=== PATIENT | female | born 1950 | race Caucasian/White ===

== ENCOUNTER 2016-12-15 15:43 | Inpatient (IN) | payer OTHER ==
[~2016-12-15] VITALS: Ht 154.9 cm; Wt 76.2 kg
[~2016-12-15 15:43] MED LIST: AMLO5TAB4 PO; LISI40TA4 PO; METO-442 PO; TRIA1CAP53 PO
[2016-12-15 16:05] VITALS: BP 143/81; PULSE 108; RESP 16; TEMP 97.4; O2SAT 99
--- NOTE | 2016-12-15 16:10 | NUR ---
Pt report received from HEENA Cardenas. Pt called by Dr. Messina's office r/t abnormal labs and instructed to go to ER. Pt AAOx4, even and non-labored respirations, BBS clear. Pt denies c/o pain or discomfort. Family member at bedside.
--- NOTE | 2016-12-15 16:10 | NUR ---
Placed in room 4 . Placed on teletypesetter monitor, blood pressure machine and pulse oximeter. To gown for exam. Side rails up. Report given to Kishore NAIK.
--- NOTE | 2016-12-15 16:20 | NUR ---
Dr. Peña at bedside to assess pt.
--- NOTE | 2016-12-15 16:35 | NUR ---
# 20 gauge angiocath placed to RAC. Use of asceptic technique. Opsite placed over site. Blood return noted. Blood for lab drawn from site. Flushed with 10 cc of normal saline. No evidence of infiltration noted. Patient tolerated well.
[2016-12-15 16:49] LABS: CALCIUM 9.2 mg/dL (8.4-11.0); CREATININE 0.89 mg/dL (0.55-1.30); POTASSIUM 3.6 mmol/L (3.5-5.1)
[2016-12-15 16:53] LABS: ALBUMIN 3.4 g/dL (3.4-4.8); INR 1.1 (0.8-1.2); PROTHROMBIN TIME 11.6 SECS (9.5-12.5); TOTAL BILIRUBIN 0.3 mg/dL (0.0-1.0); TOTAL PROTEIN, SERUM 8.4 g/dL (6.4-8.3)
--- NOTE | 2016-12-15 17:15 | NUR ---
Dr. Peña at bedside to discuss POC.
--- NOTE | 2016-12-15 17:20 | NUR ---
Lab at bedside for blood redraw to confirm RBC count. Consent signed for transfusion.
[2016-12-15] MEDS ORDERED: NACL 0.9% 1,000 ML IV ONE (17:30)
[2016-12-15 17:34] LABS: MEAN CORPUSCULAR HEMOGLOBIN 15 pg (27-31); MEAN CORPUSCULAR HGB CONC 29 % (32-36); MEAN CORPUSCULAR VOLUME 51 fL (79.0-98.0); PLATELET COUNT (AUTO) 689 K/uL (130-430); RED BLOOD CELL COUNT(AUTO) 3.89 MIL/uL (4.2-6.2); RED CELL DISTRIBUTION WIDTH 25.2 % (9.0-15.0); WHITE BLOOD COUNT (AUTO) 10.4 K/uL (4.8-10.8)
[2016-12-15 17:35] LABS: HEMATOCRIT 19.9 % (36-48); HEMOGLOBIN 5.7 g/dL (12.0-16.0)
[2016-12-15 17:43] LABS: BAND % (MANUAL) 1 % (0-6); BASOPHILS % (MANUAL) 0 % (0-2); EOSINOPHILS % (MANUAL) 2 % (0-7); LYMPHOCYTES % (MANUAL) 17 % (20-46); MONOCYTES % (MANUAL) 7 % (0-11)
--- NOTE | 2016-12-15 18:30 | NUR ---
Pt denies c/o pain or discomfort, no needs verbalized at this time. Family at bedside.
--- NOTE | 2016-12-15 19:10 | NUR ---
Patient will be admitted to care of Dr. Guerrero. Admitted to Tele unit. Will go to room 103B. Belongings list completed. Summary report printed. Report given to HEENA Chung.
[2016-12-15] MEDS ORDERED: NACL 0.9% 1,000 ML IV SCH (19:15)
[2016-12-15] MEDS ORDERED: cloNIDine HCL 0.1 MG TABLET PO PRN (19:15)
--- NOTE | 2016-12-15 19:29 | NUR ---
ADMISSION NOTE Received patient from ER via [place], received report from AUGUSTA NAIK. Patient admitted with diagnosis oF ANEMIA. Patient oriented to hospital routine, call light, toileting and safety-patient verbalized understanding.
--- NOTE | 2016-12-15 19:30 | NUR ---
INITIAL ASSESSMENT PT. A/OX4, B/P IS ELEVATED 195/93, DENIES HEADACHE AT THIS TIME, NO DISTRESS NOTED, DENIES PAIN, UPDATED WITH PLAN OF CARE, ENCOURAGED PT. TO USE CALL LIGHT FOR ASSISTANCE, CALL LIGHT WITHIN REACH, WILL CONTINUE TO MONITOR.
[2016-12-15 20:15] LABS: BILIRUBIN,URINE NEGATIVE (NEGATIVE); BLOOD, URINE NEGATIVE (NEGATIVE); COLOR,URINE YELLOW (YELLOW); GLUCOSE,URINE NEGATIVE (NEGATIVE); KETONES,URINE NEGATIVE (NEGATIVE); LEUKOCYTE ESTERASE ,URINE TRACE (NEGATIVE); NITRITE, URINE POSITIVE (NEGATIVE); PH,URINE 6.5 (5.0-8.0); PROTEIN URINE NEGATIVE (NEGATIVE); UROBILINOGEN,URINE 0.2 (0.2-1.0)
[2016-12-15 20:25] LABS: CLARITY/URINE HAZY (CLEAR)
[2016-12-15 20:27] LABS: BACTERIA,URINE MANY /HPF (None Seen); RBC,URINE NONE SEEN /HPF (0-3)
[2016-12-15 20:28] LABS: MUCUS,URINE None Seen /LPF (None Seen)
--- NOTE | 2016-12-15 20:30 | NUR ---
Consultation Paged Reason for consultation: Anemia Was consult called: Yes Person who was notified: Tabitha Consulting Physician: Dr Lang; Dr Peguero is on-call for Dr Lang [employer] Specialty: GI [employer]
[2016-12-15 20:35] VITALS: BP 184/80; PULSE 105; RESP 16; TEMP 97.5; O2SAT 100
--- NOTE | 2016-12-15 20:39 | NUR ---
PAGED DR. COWAN PAGED DR. COWAN FOR DIET ORDER, RECEIVED DIET ORDER FOR CLEAR LIQUIDS, ORDER NOTED AND TO BE CARRIED OUT.
[2016-12-15] MEDS: NACL 0.9% 1,000 ML IV SCH (21:28)
[2016-12-15] MEDS: cloNIDine HCL 0.1 MG TABLET PO PRN (21:28)
--- NOTE | 2016-12-15 21:59 | NUR ---
BT INITIATION: Consent signed per patient agreeing to administration of blood. Blood has been type and crossmatched. Blood sent from blood bank. Information on unit of blood checked against patient wristband at bedside by two nurses. All information matches. Patient or responsible constitution party informed of potential complications associated with blood transfusion. Informed of possible transfusion reaction symptoms. Aware of need to notify nurse at once of itching, shortness of breath, flushing, feeling of impending doom, or other symptoms not previously present. Vital signs taken within 5 minutes prior to initiation of transfusion. RN will remain with patient for first 15 minutes of transfusion at which time vital signs will be re-assessed.
--- NOTE | 2016-12-15 22:10 | NUR ---
TOLERATING BLOOD TRANSFUSION PT. TOLERATING BLOOD TRANSFUSION WELL, EDUCATION GIVEN REGARDING S/S OF TRANSFUSION REACTION, PT. VERBALIZED UNDERSTAND, PT. DENIES ANY S/S OF TRANSFUSION REACTION, DENIES ITCHINESS AND SHORTNESS OF BREATH, CALL LIGHT WITHIN REACH, WILL CONTINUE TO MONITOR.
[2016-12-15 23:41] VITALS: BP 164/78; PULSE 90; RESP 18; TEMP 99; O2SAT 98
--- NOTE | 2016-12-16 00:30 | NUR ---
1ST UNIT PRBC COMPLETE 1ST UNIT PRBC COMPLETE, NO S/S OF TRANSFUSION REACTION, VITAL SIGNS STABLE, NO DISTRESS NOTED, PT. TOLERATED WELL.
--- NOTE | 2016-12-16 00:52 | NUR ---
2ND PRBC STARTED Information on 2ND unit of blood checked against patient wristband at bedside by two nurses. All information matches. Patient or responsible libertarian informed of potential complications associated with blood transfusion. Informed of possible transfusion reaction symptoms. Aware of need to notify nurse at once of itching, shortness of breath, flushing, feeling of impending doom, or other symptoms not previously present. Vital signs taken within 5 minutes prior to initiation of transfusion. RN will remain with patient for first 15 minutes of transfusion at which time vital signs will be re-assessed.
--- NOTE | 2016-12-16 03:00 | NUR ---
AMBULATE TO THE BATHROOM ASSISTED PT. TO AMBULATE TO THE BATHROOM, PT. REPORTED HAVING A BOWEL MOVEMENT AND URINATED. ASSISTED SAFELY BACK TO BED WITH STEADY GAIT.
--- NOTE | 2016-12-16 03:50 | NUR ---
2ND UNIT OF PRBC COMPLETE 2ND UNIT PRBC COMPLETE, NO S/S OF TRANSFUSION REACTION, VITAL SIGNS STABLE, NO DISTRESS NOTED, PT. TOLERATED WELL.
[2016-12-16] MEDS: cloNIDine HCL 0.1 MG TABLET PO PRN ×2 (03:55→22:08)
[2016-12-16 04:26] VITALS: BP 163/82; PULSE 81; RESP 18; TEMP 97.5; O2SAT 100
[2016-12-16 06:29] LABS: HEMATOCRIT 24.6 % (36-48)
[2016-12-16 07:38] LABS: HEMOGLOBIN 7.2 g/dL (12.0-16.0)
[2016-12-16 08:00] VITALS: BP 158/77; PULSE 65; RESP 20; TEMP 97; O2SAT 98
[2016-12-16] MEDS ORDERED: METOPROLOL TARTRATE 50 MG TABLET PO ONE (09:30)
[2016-12-16] MEDS ORDERED: amLODIPine BESYLATE 5 MG TABLET PO ONE (09:30)
[2016-12-16] MEDS ORDERED: LISINOPRIL 20 MG TABLET PO ONE (09:30)
--- NOTE | 2016-12-16 09:30 | NUR ---
Patient Hgb and Hct low, and I did inform Dr Guerrero, and orders written. Explained to patient and family at bedside, that patient to have PRBCs today. Rudolph Randall RN
--- NOTE | 2016-12-16 13:30 | NUR ---
Patient to have EGD, and colonoscopy tomorrow, and two consents signed by patient. I did explain procedures to the patient and family at bedside. Rudolph Randall RN
[2016-12-16] MEDS: NACL 0.9% 1,000 ML IV SCH ×2 (13:38→20:18)
[2016-12-16] MEDS ORDERED: BISACODYL 5 MG TABLET.DR (DULCOLAX) PO ONE (17:00)
[2016-12-16] MEDS ORDERED: GOLYTELY / COLYTE SOLUTION 4 LITERS PO ONE (18:00)
--- NOTE | 2016-12-16 18:45 | NUR ---
Started unit of prbcs without signs or symptoms of rx noted. Family at bedside at this time. Rudolph Randall RN
[2016-12-16 18:52] VITALS: BP 152/66; PULSE 74; RESP 20; TEMP 97.8; O2SAT 100
[2016-12-16 19:02] VITALS: BP 147/72; PULSE 75; RESP 20; TEMP 97.5; O2SAT 100
--- NOTE | 2016-12-16 20:10 | NUR ---
OPENING NOTE Late entry due to pt. care. Report received from day shift nurse at 2009. Dulcolax and Golytely given as ordered for procedure in the AM. Plan of care discussed. Pt. denies any pain or discomfort at this time. Safety measures discussed. Family at bedside. Encouraged pt. to use call light for needs. Will continue to monitor.
[2016-12-16 20:21] VITALS: BP 154/74; PULSE 70; RESP 18; TEMP 97.5; O2SAT 100
--- NOTE | 2016-12-16 21:45 | NUR ---
TRANSFUSION COMPLETE Late entry due to pt. care. Pt. tolerated well. No reactions noted and stated by pt. VSS: 97.5F temp, 71 pulse, respirations 19, BP 157/99. Will continue to monitor.
--- NOTE | 2016-12-16 22:25 | NUR ---
CATAPRES/MIKE Encouraged pt. to continue drinking golytely. Pt. is tolerating well at this time. Catapres given as ordered PRN. Please see eMAR. Encouraged pt. to use call light for any needs. Bedside commode given. Family at bedside. Will cont. to monitor.
[2016-12-17 00:42] VITALS: BP 157/84; PULSE 65; RESP 18; TEMP 97.4; O2SAT 92
--- NOTE | 2016-12-17 00:43 | NUR ---
VITAL SIGNS/ROUNDS Pt.'s family is going home. Reminded pt. regarding safety measures and bed alarm will be turned on for safety. Pt. verbalized understanding. VSS. Safety measures in place. Call light placed on lap. Pt. requested for lights to be turned off. Will continue to monitor.
--- NOTE | 2016-12-17 02:28 | NUR ---
ROUNDS Pt. is resting quietly in bed with no s/s of acute distress. Safety measures in place. Call light to right hand side. bed alarm on. Will continue to monitor.
--- NOTE | 2016-12-17 04:00 | NUR ---
TAP WATER ENEMA Late entry due to pt. care. Tap water enema x 3 done as ordered for bowel prep. Clear output noted. Pt. tolerated well.
[2016-12-17 04:11] VITALS: BP 157/86; PULSE 70; RESP 16; TEMP 97.5; O2SAT 95
[2016-12-17] MEDS: NACL 0.9% 1,000 ML IV SCH (05:01)
--- NOTE | 2016-12-17 05:40 | NUR ---
WARM BLANKET Pt. requested warm blanket. No other needs at this time. Bed alarm on. Encouraged pt. to use call light for any needs. Will continue to monitor.
[2016-12-17 07:32] LABS: EOSINOPHILS # (AUTO) 0.3 K/uL (0.0-0.4); HEMOGLOBIN 8.8 g/dL (12.0-16.0); LYMPHOCYTES # (AUTO) 2.6 K/uL (1.0-5.5); MONOCYTES # (AUTO) 0.8 K/uL (0.0-1.0)
[2016-12-17 07:37] LABS: BASOPHILS % (AUTO) 0.5 % (0.0-2.0); EOSINOPHILS % (AUTO) 3.6 % (0.0-4.0); HEMATOCRIT 28.3 % (36-48); LYMPHOCYTES % (AUTO) 28.1 % (20.5-51.5); MEAN CORPUSCULAR HEMOGLOBIN 20 pg (27-31); MEAN CORPUSCULAR HGB CONC 31 % (32-36); MEAN CORPUSCULAR VOLUME 65 fL (79.0-98.0); MONOCYTES % (AUTO) 8.6 % (1.7-9.3); NEUTROPHILS # (AUTO) 5.5 K/uL (1.8-7.7); NEUTROPHILS % (AUTO) 59.2 % (40.0-70.0); PLATELET COUNT (AUTO) 450 K/uL (130-430); RED BLOOD CELL COUNT(AUTO) 4.38 MIL/uL (4.2-6.2); RED CELL DISTRIBUTION WIDTH 39.6 % (9.0-15.0); WHITE BLOOD COUNT (AUTO) 9.2 K/uL (4.8-10.8)
--- NOTE | 2016-12-17 07:58 | NUR ---
OPENING NOTE: RECEIVED REPORT FROM NIGHT NURSE. PATIENT IS RESTING COMFORTABLY IN BED. NO S/S OF DISTRESS OR SOB. PATIENT IS ALERT AND ORIENTED, ABLE TO EXPRESS NEEDS, AND ASK FOR ASSISTANCE. BLOOD PRESSURE ELEVATED AND WILL GIVE CATAPRES ORDERED PRN FOR HIGH BLOOD PRESSURE. IV IS PATENT AND INFUSING. CALL LIGHT IN REACH, BED IN LOWEST POSITION, AND WILL CONTINUE TO MONITOR.
[2016-12-17 08:04] LABS: ALBUMIN 2.8 g/dL (3.4-4.8); CALCIUM 8.5 mg/dL (8.4-11.0); CREATININE 0.72 mg/dL (0.55-1.30); TOTAL BILIRUBIN 0.4 mg/dL (0.0-1.0); TOTAL PROTEIN, SERUM 6.9 g/dL (6.4-8.3)
[2016-12-17] MEDS: cloNIDine HCL 0.1 MG TABLET PO PRN ×2 (08:23→14:29)
[2016-12-17 08:24] VITALS: BP 192/77; PULSE 6; RESP 17; TEMP 98.1; O2SAT 98
[2016-12-17] MEDS ORDERED: SIMETHICONE 40 MG/0.6 ML ML ONE (08:43)
[2016-12-17] MEDS ORDERED: MIDAZOLAM HCL 5 MG/5 ML VIAL ONE (08:44)
[2016-12-17] MEDS ORDERED: MEPERIDINE HCL/PF 100 MG/ML AMP ONE (08:44)
[2016-12-17] MEDS ORDERED: amLODIPine BESYLATE 5 MG TABLET PO SCH ×2 (09:00)
[2016-12-17] MEDS ORDERED: LISINOPRIL 20 MG TABLET PO SCH (09:00)
[2016-12-17] MEDS ORDERED: METOPROLOL TARTRATE 50 MG TABLET PO SCH (09:00)
--- NOTE | 2016-12-17 10:00 | NUR ---
PATIENT IN GI
--- NOTE | 2016-12-17 10:57 | NUR ---
NOTE: PATIENT IS BACK FROM GI. PATIENT IS STABLE CONDITION. VITAL SIGNS WNL. S/S OF DISTRESS OR SOB. PATIENT IS ALERT AND ORIENTED. CALL LIGHT IN REACH, BED IN LOWEST POSITION, AND WILL CONTINUE TO MONITOR.
[2016-12-17] MEDS ORDERED: DIATR MEGLU/DIATRIZ SOD 30 ML SOLUTION PO ONE (11:36)
--- NOTE | 2016-12-17 12:00 | NUR ---
note: patient is resting comfortably in bed. no s/s of distress or sob. patient is alert and oriented, able to express needs, and ask for assistance. call light in reach, bed in lowest position, and will continue to monitor.
[2016-12-17 12:33] VITALS: BP 172/72; PULSE 53; RESP 16; TEMP 97.6; O2SAT 96
[2016-12-17] MEDS ORDERED: POTASSIUM CHLORIDE 20 MEQ/PKT PACKET PO ONE ×2 (13:45→14:15)
--- NOTE | 2016-12-17 14:22 | NUR ---
SURGICAL CONSULT Spoke with Ashley regarding request for consultation with Dr. Christiansen ([phone]) for reason: LU
--- NOTE | 2016-12-17 14:44 | NUR ---
MD Dr. Christiansen called to get information on patient. He was informed off current status. no new orders given.
[2016-12-17 15:29] VITALS: BP 179/94; PULSE 72; RESP 19; TEMP 96.6; O2SAT 97
--- NOTE | 2016-12-17 16:24 | NUR ---
Note: Patient has family visiting. They all went the cafeteria. Patient is walking with steady gait. no s/s of distress or sob. Will continue to monitor.
--- NOTE | 2016-12-17 18:17 | NUR ---
CLOSING NOTE: PATIENT IS STILL IN THE [place] WITH FAMILY. PATIENT IS WAITING FOR DR. VALERIO AND WANTING TO GO HOME. PATIENT WAS EDUCATED ON IMPORTANCE OF WAITING FOR SURGEON TO SEE HER IN ORDER FOR A PLAN TO BE MADE. PATIENT SAID SHE WOULD WAIT A WHILE LONGER. CALL LIGHT IN REACH, BED IN LOWEST POSITION, AND WILL GIVE REPORT TO NIGHT NURSE.
--- NOTE | 2016-12-17 19:27 | NUR ---
OPENING NOTE Pt. and bedside report received from day shift nurse. Pt. is at the cafeteria with family per day shift nurse. Will continue to monitor.
--- NOTE | 2016-12-17 21:00 | NUR ---
DR. VALERIO Late entry due to pt. care. Dr. Valerio here to see patient. Walked with MD to cafeteria where patient is conversing with her family members. Pt. denies any needs at this time and is in stable condition.
--- NOTE | 2016-12-17 21:25 | NUR ---
PAGED DR COWAN, NIDHI KIDD
[2016-12-17] MEDS ORDERED: FERR-57 PO (21:40)
--- NOTE | 2016-12-17 21:58 | NUR ---
PAGED DR COWAN, NIDHI ROSS.
[2016-12-17 22:02] VITALS: BP 158/88; PULSE 75; RESP 18; TEMP 97.5; O2SAT 92
--- NOTE | 2016-12-17 22:13 | NUR ---
2ND PAGE FOR NIDHI BAIRD.
--- NOTE | 2016-12-17 22:22 | NUR ---
SPOKE TO DR. COWAN Spoke to Dr. Cowan to report pt. has been seen by Dr. Christiansen and he is discharging her home. Dr. Cowan okayed discharge and for patient to also follow up with Dr. Lang/Dr. Peguero GI consult. Paging Dr. Peguero to report.
--- NOTE | 2016-12-17 22:25 | NUR ---
PAGED DR DONIS, [facility] [phone]
--- NOTE | 2016-12-17 22:28 | NUR ---
SPOKE TO DR. PEGUERO Reported to Dr. Peguero patient has been cleared for discharge by Dr. Christiansen and that Dr. Guerrero wanted pt. to follow up with him for GI. Dr. Peguero said no need to follow up with him and for pt. to just follow up with Dr. Christiansen. Will carry out and educated pt.
--- NOTE | 2016-12-17 22:55 | NUR ---
DISCHARGE Late entry due to pt. care. Patient given medication reconciliation form and D/C transitional care instructions. Exit Care provided. Patient verbalized understanding. Dr. Christiansen discussed with patient the results and follow up orders. Ambulatory with steady gait for discharge to home. Patient in stable condition, ID and allergy band removed. IV catheter to right a/c removed, intact and dressing applied, no active bleeding. Dr. Christiansen instructed pt. to call his office tomorrow for Ferrous Sulfate medication (see emar) and to follow up to see him next week. Pt. stated she did not bring any belongings. Discharge pt. to family, Emily (daughter), in private automobile transferred via wheelchair by GORDO Ruiz.
--- NOTE | 2016-12-22 14:35 | NUR ---
Discharge Follow Up Phone Call GIS GEOGRAPHER phoned patient, , on 12/20/16 and left a voicemail message. GIS GEOGRAPHER phoned today and spoke with patient's daughter, Emily. Emily and patient live together. Emily stated patient was doing okay. She is taking her otc iron as directed. Patient has a follow up appointment with her PCP, Dr Ean Stone, on 12/26/[address] Christiansen on 12/28/16. They will discuss treatments and diagnosis further at that time. GIS GEOGRAPHER asked if patient was Medi-Gurpreet eligible. It seems patient may be. Emily agreed to discuss Medi-Gurpreet with [employer] [employer]. GIS GEOGRAPHER emailed Maciej with [employer] and made Medi-Gurpreet referral. GIS GEOGRAPHER was concerned that patient's PCP may not have biopsy results and is awaiting the office to reopen at 3pm so the fax number can be obtained and the results faxed to Dr Ean Stone.
== END 2016-12-17 22:55 | disposition home or self-care (01) | DRG 375 ==
LOC: SED 15:43 → STU 18:43 → SED 19:10 → STU 20:21 → SMU 12-16 11:55
PROC: 30233N1 Transfusion of Nonautologous Red Blood Cells into Peripheral Vein, Percutaneous Approach (ICD-10-PCS; 2016-12-15)
PROC: 0DBH8ZX Excision of Cecum, Via Natural or Artificial Opening Endoscopic, Diagnostic (ICD-10-PCS; 2016-12-17)
PROC: 0DB98ZX Excision of Duodenum, Via Natural or Artificial Opening Endoscopic, Diagnostic (ICD-10-PCS; principal; 2016-12-17 10:00)
PROC: 0DB68ZX Excision of Stomach, Via Natural or Artificial Opening Endoscopic, Diagnostic (ICD-10-PCS; 2016-12-17 10:00)
DX: C18.0 Malignant neoplasm of cecum (principal); K92.1 Melena; K92.0 Hematemesis; K29.60 Other gastritis without bleeding; K57.90 Diverticulosis of intestine, part unspecified, without perforation or abscess without bleeding; D50.9 Iron deficiency anemia, unspecified; F41.9 Anxiety disorder, unspecified; I10 Essential (primary) hypertension; J45.909 Unspecified asthma, uncomplicated; K63.9 Disease of intestine, unspecified; D12.2 Benign neoplasm of ascending colon; K64.9 Unspecified hemorrhoids; K29.80 Duodenitis without bleeding; Z87.11 Personal history of peptic ulcer disease; Z91.018 Allergy to other foods; Z91.041 Radiographic dye allergy status; Z91.013 Allergy to seafood; Z80.3 Family history of malignant neoplasm of breast; Z90.710 Acquired absence of both cervix and uterus; K21.0 Gastro-esophageal reflux disease with esophagitis
CPT/HCPCS: 36415; 43239; 45380; 71010; 71250-TC; 80048; 80053; 81000-TC; 85007; 85018-TC; 85025; 85027; 85610-TC; 85730-TC; 86886; 86900; 86901; 86920; 87081; 87086; 88305; 88312; 88313; 93005; 96360; 99285; J2175; J2250; J7030; J7040; J7050; P9021; Q9964

== ENCOUNTER 2017-01-03 07:53 | Inpatient (IN) | payer OTHER ==
[2017-01-03] VITALS (7 sets, daily range): BP systolic 132–153
[~2017-01-03] VITALS: Ht 157.5 cm; Wt 76.2 kg
[~2017-01-03 07:53] MED LIST changes: -AMLO5TAB4 PO; +FERR-57 PO
[2017-01-03] MEDS ORDERED: cefOXitin SODIUM 2 GM in D5W 100 ML IV ONE (09:00)
[2017-01-03] MEDS ORDERED: MOME220A2 INH (10:16)
[2017-01-03] MEDS ORDERED: FOLI-43 PO (10:22)
[2017-01-03] MEDS ORDERED: FERR142T6 PO (10:22)
[2017-01-03] MEDS ORDERED: SEVOFLURANE 15 MIN GAS INH ONE (14:00)
[2017-01-03] MEDS ORDERED: LR 1,000 ML IV.SOLN IV ONE (14:00)
[2017-01-03] MEDS ORDERED: ONDANSETRON HCL 4 MG/2 ML VIAL ONE (14:00)
[2017-01-03] MEDS ORDERED: NS 1000 ML BAG IV ONE (14:00)
[2017-01-03] MEDS ORDERED: BUPIVACAINE LIPOSOME/PF 266 MG/20 ML VIAL INFIL ONE (14:00)
[2017-01-03] MEDS ORDERED: MORPHINE SULFATE 10 MG/ML VIAL ONE (14:00)
[2017-01-03] MEDS ORDERED: ROCURONIUM BROMIDE 10 MG/ML (ZEMURON) ONE (14:00)
[2017-01-03] MEDS ORDERED: PROPOFOL 200MG/ 20ML VIAL (DIPRIVAN) IV ONE (14:00)
[2017-01-03] MEDS ORDERED: cefOXitin SODIUM 2 GM/VIAL (MEFOXIN) ONE (14:00)
[2017-01-03] MEDS ORDERED: fentaNYL CITRATE 250 MCG/5 ML AMP ONE (14:00)
[2017-01-03] MEDS ORDERED: NS IRRIG SOLN 1000 ML IR ONE (14:00)
[2017-01-03] MEDS ORDERED: MIDAZOLAM HCL 5 MG/5 ML VIAL ONE (14:00)
[2017-01-03] MEDS ORDERED: LR 1,000 ML IV SCH (14:28)
[2017-01-03] MEDS ORDERED: METOCLOPRAMIDE HCL 10 MG/2 ML VIAL IVP PRN (14:30)
[2017-01-03] MEDS ORDERED: MORPHINE 2 MG/ML INJ. SYRINGE IVP PRN ×3 (14:30)
[2017-01-03] MEDS ORDERED: ACETAMINOPHEN 325 MG TABLET PO PRN (16:45)
[2017-01-03] MEDS ORDERED: HYDROcodone/ACETAMIN 5-325 MG TAB (NORCO/ VICODIN) PO PRN ×2 (16:45)
[2017-01-03 17:09] LABS: HEMATOCRIT 27.4 % (36-48); HEMOGLOBIN 9.2 g/dL (12.0-16.0)
[2017-01-03] MEDS: LR 1,000 ML IV SCH (17:35)
--- NOTE | 2017-01-03 17:40 | NUR ---
RECEIVED PATIENT FROM OR Patient is awake, alert, oriented X 4. Patient oriented to hospital room, call light, pain management and safety-teach back done, assessment complete, operating sites on abdomen observed, dressings are dry, clean, and intact, no bleeding noted, patient currently has a IV on right hand gauge 22 with fluids running, no signs of infiltration, vital signs are stable, patient currently has a Parrish catheter, draining clear and yellow, patient states she is currently not in any pain, she just has a gassy feeling, instructed patient to use call smyth if assistance is needed, patient verbalized understanding, call smyth left in patient hand, bed alarm on, two side rails up, fall precautions in place, will continue to monitor patient.
--- NOTE | 2017-01-03 18:40 | NUR ---
RN ROUNDS PATIENT IS CURRENTLY RESTING IN BED, FAMILY AT BEDSIDE, PATIENT HAS NO COMPLAINTS OF PAIN, ALL NEEDS MET, WILL ENDORSE NURSE TO CCU NURSE, CALL HARRIS LEFT IN PATIENT'S HAND, BED IN LOWEST POSITION, BED ALARM ON, FALL PRECAUTIONS IN PLACE,
--- NOTE | 2017-01-03 20:00 | NUR ---
OPENING ASSESSMENT PATIENT ALERT/ORIENTEDX4. SPEECH IS CLEAR AND APPROPRIATE. ABDOMINAL STERI-STRIPS INTACT AND DRY. ICE PACK APPLIED TO AREA. ABDOMEN IS DISTENDED, BUT SOFT TO TOUCH. USES IS AND INSTRUCTED TO DEEP BREATH AND COUGH, USING PILLOW FOR ABDOMINAL SPLINT. NO SOB NOTED. HAS IV RT. HAND 22G INTACT WITH LR INFUSING @ 100 ML/HR. SITE IS CLEAR AND INTACT. F/.CATH DRAINING CLEAR YELLOW URINE. CALL LIGHT WITHIN EASY ACCESS. INFORMED PATIENT TO CALL NURSE FOR ALL NEEDS AND NOT TO GET OUT OF BED WITHOUT ASSISTANCE. HAS SCD BILATERAL LOWER EXTREMITIES. INFORMED HER TO WIGGLE HER TOES.
[2017-01-03] MEDS: DOCUSATE SODIUM 100 MG CAPSULE PO SCH (20:24)
[2017-01-03] MEDS: ONDANSETRON HCL 4 MG/2 ML VIAL IVP PRN (20:25)
--- NOTE | 2017-01-03 20:25 | NUR ---
PAIN/NAUSEA MEDICATED FOR ABDOMINAL PAIN 04/23 WITH MORPHINE 4MG IVP AND FOR NAUSEA WITH ZOFRAN 4MG IVP.
[2017-01-03] MEDS: MORPHINE 4 MG/ML INJ. SYRINGE IVP PRN (20:27)
[2017-01-03] MEDS: cefOXitin SODIUM 2 GM in D5W 100 ML IV SCH (22:03)
--- NOTE | 2017-01-03 22:20 | NUR ---
NOTES NEW IV PLACED IN LFA 22G. LT. HAND IV. INFILTRATED.
--- NOTE | 2017-01-04 | NUR ---
ROUNDS PATIENT RESTING QUIETLY @ THIS TIME. NO DISTRESS NOTED.
[2017-01-04 01:24] VITALS: BP_SYST 148
[2017-01-04] MEDS: ONDANSETRON HCL 4 MG/2 ML VIAL IVP PRN ×4 (01:52→17:32)
[2017-01-04] MEDS: MORPHINE 4 MG/ML INJ. SYRINGE IVP PRN ×4 (01:54→17:24)
--- NOTE | 2017-01-04 01:55 | NUR ---
PAIN/NAUSEA MEDICATED FOR ABDOMINAL PAIN WITH MORPHINE 4MG IVP AND FOR NAUSEA WITH ZOFRAN 4MG IVP.
[2017-01-04 03:23] VITALS: BP_SYST 144
--- NOTE | 2017-01-04 04:10 | NUR ---
PATIENT RESTING: Patient resting quietly. No acute distress noted. Vital signs within normal range.
[2017-01-04] MEDS: LR 1,000 ML IV SCH ×2 (06:19→20:23)
--- NOTE | 2017-01-04 06:20 | NUR ---
PAIN/NAUSEA MEDICATED FOR ABDOMINAL PAIN WITH MORPHINE 4MG IVP AND FOR NAUSEA WITH ZOFRAN 4MG IVP.
[2017-01-04] MEDS: cefOXitin SODIUM 2 GM in D5W 100 ML IV SCH ×3 (06:32→23:00)
[2017-01-04 06:57] LABS: BASOPHILS % (AUTO) 0.1 % (0.0-2.0); EOSINOPHILS # (AUTO) 0.1 K/uL (0.0-0.4); EOSINOPHILS % (AUTO) 0.4 % (0.0-4.0); HEMOGLOBIN 8.4 g/dL (12.0-16.0); LYMPHOCYTES # (AUTO) 1.8 K/uL (1.0-5.5); LYMPHOCYTES % (AUTO) 12.6 % (20.5-51.5); MEAN CORPUSCULAR HEMOGLOBIN 21 pg (27-31); MEAN CORPUSCULAR HGB CONC 31 % (32-36); MEAN CORPUSCULAR VOLUME 68 fL (79.0-98.0); MONOCYTES # (AUTO) 1.3 K/uL (0.0-1.0); MONOCYTES % (AUTO) 9.2 % (1.7-9.3); NEUTROPHILS # (AUTO) 10.9 K/uL (1.8-7.7); NEUTROPHILS % (AUTO) 77.7 % (40.0-70.0); PLATELET COUNT (AUTO) 462 K/uL (130-430); RED CELL DISTRIBUTION WIDTH 38.8 % (9.0-15.0); WHITE BLOOD COUNT (AUTO) 14.1 K/uL (4.8-10.8)
--- NOTE | 2017-01-04 07:00 | NUR ---
CLOSING NOTES PATIENT WITHOUT DISTRESS. DC'D CUNHA CATH PER MD ORDER, IST DAY POST OP, CALL LIGHT WITHIN EASY ACCESS. INFORMED PATIENT TO CALL NURSE FOR ALL NEEDS. NOT TO GET OUT OF BED WITHOUT ASSIST.
[2017-01-04 07:10] LABS: ALBUMIN 2.4 g/dL (3.4-4.8); CALCIUM 8.2 mg/dL (8.4-11.0); CREATININE 0.84 mg/dL (0.55-1.30); POTASSIUM 3.5 mmol/L (3.5-5.1); TOTAL BILIRUBIN 0.3 mg/dL (0.0-1.0); TOTAL PROTEIN, SERUM 6.6 g/dL (6.4-8.3)
[2017-01-04 07:45] VITALS: BP_SYST 148
--- NOTE | 2017-01-04 07:45 | NUR ---
Initial notes: pt on bed awake, alert and oriented. Stable. I.V. access patent. Dressing intact and no active bleeding. SCD in placed. Discussed plan of care. Report given at bedside. Call light within reach.
[2017-01-04] MEDS: LISINOPRIL 20 MG TABLET PO SCH (08:31)
[2017-01-04] MEDS: DOCUSATE SODIUM 100 MG CAPSULE PO SCH ×2 (08:31→20:23)
[2017-01-04] MEDS: METOPROLOL TARTRATE 50 MG TABLET PO SCH (08:32)
[2017-01-04] MEDS: TRIAMTERENE/HYDROCHLOROTHIAZID 1 CAP CAPSULE (DYAZIDE37.5/25) PO SCH (08:32)
[2017-01-04] MEDS: FLUTICASONE FUROATE 100 MCG BLST.W.DEV INH SCH (08:36)
--- NOTE | 2017-01-04 09:30 | NUR ---
ambulate: pt able to walk x2 in the hallway. tolerated well.
--- NOTE | 2017-01-04 11:55 | NUR ---
Pain meds: pt complained of abdominal pain. morphine given thru ivp. family at bedside.
[2017-01-04 12:00] VITALS: BP_SYST 125
--- NOTE | 2017-01-04 14:43 | NUR ---
rounds: pt transferred to 129a. family at bedside.
[2017-01-04 16:00] VITALS: BP_SYST 129
--- NOTE | 2017-01-04 18:27 | NUR ---
Chris rounds: seen by Dr. Christiansen and discussed with family the treatment plan.
--- NOTE | 2017-01-04 19:30 | NUR ---
closing notes: pt sitting on the chair. stable. needs attended. family at bedside. call light within reach. report given at bedside.
[2017-01-04] MEDS ORDERED: IRON DEXTRAN COMPLEX 25 MG in NS 50 ML TEST DOSE IV ONE (20:00)
--- NOTE | 2017-01-04 20:00 | NUR ---
OPENING NOTE: RECEIVED REPORT FROM DAY-SHIFT NURSE. PATIENT SITTING UP IN CHAIR AWAKE AND ALERT. SPEECH CLEAR. ANSWERS APPROPRIATELY. DENIES DISCOMFORT AT THIS TIME. SAFETY MEASURES IN PLACE. FAMILY PRESENT AT BEDSIDE. EDUCATED ON USE OF CALL LIGHT. WILL CONTINUE TO MONITOR.
[2017-01-04 20:26] VITALS: BP_SYST 125
[2017-01-04] MEDS ORDERED: IRON DEXTRAN COMPLEX 75 MG in NS 100 ML IV ONE (21:00)
--- NOTE | 2017-01-04 22:15 | NUR ---
ROUNDS: ASSISTED UP TO BATHROOM BY FAMILY MEMBERS. PATIENT TOLERATES AMBULATING FAIR. BACK TO BED WITH ASSIST. VOIDING WITHOUT DIFFICULTY. CALL LIGHT WITHIN REACH. FAMILY REMAINS AT BEDSIDE.
[2017-01-05] VITALS (8 sets, daily range): BP systolic 105–138
--- NOTE | 2017-01-05 00:15 | NUR ---
ROUNDS: PATIENT RESTING WITH BED IN SUPINE POSITION. RESPIRATIONS ARE EVEN AND REGULAR. NO S/S OF DISTRESS AT THIS TIME. CALL LIGHT IS WITHIN REACH. WILL CONTINUE TO MONITOR.
--- NOTE | 2017-01-05 02:00 | NUR ---
PAIN: PATIENT MEDICATED FOR C/O DISCOMFORT IN ABDOMEN 12/22. TYLENOL 650MG PO GIVEN FOR C/O MILD DISCOMFORT. WILL REASSESS FOR PAIN MED. RESULTS.
--- NOTE | 2017-01-05 03:15 | NUR ---
REASSESSMENT: PATIENT MORE RESTFUL. HOB KEPT ELEVATED. NO DISTRESS NOTED. RESPIRATIONS REMAIN REGULAR AND UNLABORED. CALL LIGHT WITHIN REACH. WILL CONTINUE TO MONITOR.
--- NOTE | 2017-01-05 05:08 | NUR ---
BATHROOM Assisted pt. to bathroom to void; gait is steady but requires nurse assist. Pt. c/o discomfort to abdomen; pain medication was offered but pt. stating she will "wait and try to lay down first" and will "let me know" if she is unable to tolerate. Safety measures in place. Bed alarm on. Encouraged pt. to use call light for any needs. Pt. verbalized understanding. Call light placed to left hand. IVF infusing as ordered. Will continue to monitor.
[2017-01-05] MEDS: LR 1,000 ML IV SCH ×2 (06:15→18:03)
[2017-01-05 06:58] LABS: BASOPHILS # (AUTO) 0.1 K/uL (0.0-0.2); BASOPHILS % (AUTO) 0.3 % (0.0-2.0); EOSINOPHILS # (AUTO) 0.2 K/uL (0.0-0.4); EOSINOPHILS % (AUTO) 0.9 % (0.0-4.0); HEMATOCRIT 25.2 % (36-48); HEMOGLOBIN 7.9 g/dL (12.0-16.0); LYMPHOCYTES # (AUTO) 2.1 K/uL (1.0-5.5); LYMPHOCYTES % (AUTO) 10.7 % (20.5-51.5); MEAN CORPUSCULAR HEMOGLOBIN 21 pg (27-31); MEAN CORPUSCULAR HGB CONC 31 % (32-36); MEAN CORPUSCULAR VOLUME 68 fL (79.0-98.0); MONOCYTES # (AUTO) 1.6 K/uL (0.0-1.0); NEUTROPHILS % (AUTO) 80.1 % (40.0-70.0); PLATELET COUNT (AUTO) 401 K/uL (130-430); RED BLOOD CELL COUNT(AUTO) 3.69 MIL/uL (4.2-6.2); RED CELL DISTRIBUTION WIDTH 39.2 % (9.0-15.0)
--- NOTE | 2017-01-05 07:30 | NUR ---
Initial notes: pt on bed. awake, alert and oriented. stable. I. V. access patent. Discussed plan of care. Call light within reach. Report received at bedside.
--- NOTE | 2017-01-05 08:07 | NUR ---
CALLED ATTENDING MD DR VALERIO, RE: LOW HGB. SPOKE TO SB
[2017-01-05] MEDS: FLUTICASONE FUROATE 100 MCG BLST.W.DEV INH SCH (08:26)
[2017-01-05] MEDS: LISINOPRIL 20 MG TABLET PO SCH (08:28)
[2017-01-05] MEDS: DOCUSATE SODIUM 100 MG CAPSULE PO SCH (08:28)
[2017-01-05] MEDS: TRIAMTERENE/HYDROCHLOROTHIAZID 1 CAP CAPSULE (DYAZIDE37.5/25) PO SCH (08:28)
[2017-01-05] MEDS: METOPROLOL TARTRATE 50 MG TABLET PO SCH (08:29)
[2017-01-05] MEDS: ACETAMINOPHEN 325 MG TABLET PO PRN ×2 (08:33→17:18)
--- NOTE | 2017-01-05 10:17 | NUR ---
Nutrition Update Ok Scale 18 noted. Pt admitted for neoplasm of uncertain behavior of colon; soft (low fiber/bland). Diet: soft (low fiber/bland) BMI: 30.7 kg/m2 RD to follow per nutrition care standards.
--- NOTE | 2017-01-05 11:30 | NUR ---
BT INITIATION: Consent signed per agreeing to administration of blood. Blood has been type and crossmatched. Blood sent from blood bank. Information on unit of blood checked against patient wristband at bedside by two nurses. All information matches. Patient or responsible democrat informed of potential complications associated with blood transfusion. Informed of possible transfusion reaction symptoms. Aware of need to notify nurse at once of itching, shortness of breath, flushing, feeling of impending doom, or other symptoms not previously present. Vital signs taken within 5 minutes prior to initiation of transfusion. RN will remain with patient for first 15 minutes of transfusion at which time vital signs will be re-assessed.
--- NOTE | 2017-01-05 11:45 | NUR ---
PT NOTES CHART REVIEWED, BUT NOT CLEARED FOR PT AT THIS TIME D/T HAVING BLOOD TRANSFUSION AT THIS TIME, WILL FOLLOW UP WITH PATIENT NEXT THERAPY SESSION. RN AWARE. [id number] Addendum: 01/05/17 at 1549 by Ame Toth PT PHYSICAL THERAPY CO-SIGN The Physical Therapy Progress Notes documented by Compensation Director have been reviewed. Reviewed/Co-Signed by: Ame Toth,PT Documentation Done by: Favio José, GEOLOGICAL MANAGER
--- NOTE | 2017-01-05 11:46 | NUR ---
Blood transfusion: pt. no shortness of breath. no itchiness. pt comfortable resting on the bed while transfusion on going. .
--- NOTE | 2017-01-05 14:30 | NUR ---
blood transfusion done: transfusion done. no shortness of breath. stable. patient resting.
--- NOTE | 2017-01-05 15:50 | NUR ---
rounds: pt on breathing treatment. no distress noted. Addendum: 01/05/17 at 1553 by Joceline Butterfield RN jo pulido
--- NOTE | 2017-01-05 15:58 | NUR ---
rounds: pt on bed sleeping. no distress noted.
[2017-01-05 16:15] LABS: HEMATOCRIT 32.3 % (36-48); HEMOGLOBIN 10.6 g/dL (12.0-16.0); MEAN CORPUSCULAR HEMOGLOBIN 23 pg (27-31); MEAN CORPUSCULAR HGB CONC 33 % (32-36); MEAN CORPUSCULAR VOLUME 69 fL (79.0-98.0); PLATELET COUNT (AUTO) 417 K/uL (130-430); RED BLOOD CELL COUNT(AUTO) 4.65 MIL/uL (4.2-6.2)
[2017-01-05 16:28] LABS: RED CELL DISTRIBUTION WIDTH 36.7 % (9.0-15.0)
--- NOTE | 2017-01-05 16:43 | NUR ---
CALLED THE ATTENDING MD DR VALERIO, RE: ELEVATED WBC. SPOKE TO THALIA
[2017-01-05 16:49] LABS: BAND % (MANUAL) 2 % (0-6); BASOPHILS % (MANUAL) 0 % (0-2); EOSINOPHILS % (MANUAL) 2 % (0-7); LYMPHOCYTES % (MANUAL) 7 % (20-46); MONOCYTES % (MANUAL) 7 % (0-11)
[2017-01-05] MEDS ORDERED: cefOXitin SODIUM 2 GM in D5W 100 ML IV SCH (17:15)
[2017-01-05] MEDS ORDERED: LACTOBACILLUS RHAMNOSUS GG 1 CAP CAPSULE PO ONE (17:45)
--- NOTE | 2017-01-05 18:00 | NUR ---
Nina rounds: Dr. Christiansen seen the pt, discuss plan of care with discharge order.
[2017-01-05] MEDS ORDERED: AMOX-423 PO (18:48)
--- NOTE | 2017-01-05 19:30 | NUR ---
closing notes: pt on bed resting with family at bedside. Stable. Informed pt the nightman nurse will do the discharge paper. Report given at bedside. call light within reach.
--- NOTE | 2017-01-05 19:35 | NUR ---
PAGED DR VALERIO, NIDHI MEREDITH.
--- NOTE | 2017-01-05 20:43 | NUR ---
D/C Patient Patient's transitional care instructions provided. Patient verbalized understanding. Patient is ambulatory with steady gait. Patient is going home with Socorro (patient's grand daughter). Patient in stable condition, ID band removed. IV catheter removed, intact and dressing applied, no active bleeding. Patient educated on antibiotics treatment. All belongings sent with patient.
[2017-01-05] MEDS ORDERED: IRON DEXTRAN COMPLEX 100 MG in NS 100 ML IV SCH (21:00)
[2017-01-05] MEDS ORDERED: LACTOBACILLUS RHAMNOSUS GG 1 CAP CAPSULE PO SCH (21:00)
--- NOTE | 2017-01-12 12:02 | NUR ---
Discharge Follow Up Phone Call: SHIPPING AND RECEIVING SPECIALIST placed ashley to pt ([phone]); SHIPPING AND RECEIVING SPECIALIST spoke to pt's dtr, Emily. Pt's dtr states that she is doing well. Pt was able to fill her prescriptions and has an appointment with Dr. Christiansen on 01/16/17. Pt's dtr states that they have no questions/concerns regarding to pt's hospitalization/discharge. No further follow up calls will be made at this time.
== END 2017-01-05 22:11 | disposition home or self-care (01) | DRG 330 ==
LOC: SMU 07:53 → EDSTATUS 10:00 → SMU 17:46
PROVIDERS: ADMIT Surgery; ATTEND Surgery
PROC: 0FB24ZX Excision of Left Lobe Liver, Percutaneous Endoscopic Approach, Diagnostic (ICD-10-PCS; 2017-01-03)
PROC: 8E0W0CZ Robotic Assisted Procedure of Trunk Region, Open Approach (ICD-10-PCS; 2017-01-03)
PROC: 0DTF4ZZ Resection of Right Large Intestine, Percutaneous Endoscopic Approach (ICD-10-PCS; principal; 2017-01-03 10:00)
PROC: 30233N1 Transfusion of Nonautologous Red Blood Cells into Peripheral Vein, Percutaneous Approach (ICD-10-PCS; 2017-01-05)
DX: C18.2 Malignant neoplasm of ascending colon (principal); D62 Acute posthemorrhagic anemia; E44.1 Mild protein-calorie malnutrition; I10 Essential (primary) hypertension; J45.909 Unspecified asthma, uncomplicated; K76.9 Liver disease, unspecified; R16.0 Hepatomegaly, not elsewhere classified; Z91.041 Radiographic dye allergy status; Z91.013 Allergy to seafood; Z91.018 Allergy to other foods; Z90.710 Acquired absence of both cervix and uterus; Z79.899 Other long term (current) drug therapy; Z68.30 Body mass index [BMI] 30.0-30.9, adult
CPT/HCPCS: 36415; 80053; 82378; 85007; 85018-TC; 85025; 85027; 86886; 86900; 86901; 86920; 87081; 88307; 88309; 97116-GP; C1727; C9290; J0694; J1750; J2250; J2270; J2405; J2704; J3010; J7030; J7050; J7060; J7120; P9021